=== PATIENT | male | born 1995 | race Two or more races ===

== ENCOUNTER 2024-07-02 13:21 | Outpatient (RCR) | payer MEDICAID, SELFPAY ==
[2024-06-23 16:46] LABS: Basophils % (Auto) 0 % (0-2.5); Eosinophils # (Auto) 0.1 Thou/mm3 (0.0-0.5); Eosinophils % (Auto) 1 % (0-10); Hematocrit 43.2 % (41.0-53.0); Immature Granulocytes % (Auto) 0 % (0-0); Immature Granulocytes Auto 0.03 Thou/mm3 (0.00-0.00); Lymphocytes # (Auto) 1.5 Thou/mm3 (1.0-4.8); Lymphocytes % (Auto) 19 % (10-50); Mean Corpuscular HGB Conc 34.7 g/dl (31.0-37.0); Mean Corpuscular Hemoglobin 28.8 pg (25.0-35.0); Mean Corpuscular Volume 83 fL (80-100); Monocytes # (Auto) 0.5 Thou/mm3 (0.0-0.8); Monocytes % (Auto) 6 % (0-12); Neutrophils # (Auto) 6.1 Thou/mm3 (1.8-7.7); Neutrophils % (Auto) 74 % (37-80); Nucleated Red Blood Cell % 0 /100 WBC (0); Platelet Count 318 Thou/mm3 (140-440); RDW Standard Deviation 40.6 fL (35.1-43.9); White Blood Count 8.2 Thou/mm3 (3.8-10.6)
[2024-06-23 16:51] LABS: Alanine Aminotransferase 95 U/L (10-49); Albumin, Serum 4.8 gm/dL (3.5-5.0); Albumin/Globulin Ratio 1.8 (1.2-2.2); Alkaline Phosphatase 117 U/L (46-116); Anion Gap 8 (7-16); Aspartate Amino Transferase 31 U/L (0-34); BUN/Creatinine Ratio 16 Ratio (12-20); Bilirubin,Total 0.5 mg/dL (0.3-1.2); Blood Urea Nitrogen 14 mg/dL (9-23); Calcium 9.6 mg/dL (8.3-10.6); Calcium (Corrected) 9.6 mg/dL (8.5-10.1); Carbon Dioxide 26.1 mMol/L (20.0-31.0); Chloride 106 mMol/L (98-107); Creatinine (Component) 0.9 mg/dL (0.6-1.3); Globulin 2.6 gm/dL (2.3-3.5); Glucose 110 mg/dL (74-106); Osmolality,Calculated 280 (275-295); Potassium 3.5 mMol/L (3.4-5.1); Sodium 140 mMol/L (136-145); Total Protein 7.4 gm/dL (5.7-8.2); eGFR > 60 See Note
[2024-06-27 22:05] LABS: Albumin 4.1 g/dL (3.8-4.8); Alpha-1-Globulin 0.2 g/dL (0.2-0.3); Alpha-2-Globulin 0.7 g/dL (0.5-0.9); Beta-1-Globulin 0.4 g/dL (0.4-0.6); Beta-2-globulin 0.4 g/dL (0.2-0.5); Gamma Globulin 1.2 g/dL (0.8-1.7)
[2024-06-30 06:53] LABS: Protein, total, serum 7.1 g/dL (6.1-8.1)
[2024-07-02 14:14] LABS: Alanine Aminotransferase 99 U/L (10-49); Albumin, Serum 4.9 gm/dL (3.5-5.0); Albumin/Globulin Ratio 1.9 (1.2-2.2); Alkaline Phosphatase 129 U/L (46-116); Anion Gap 8 (7-16); Aspartate Amino Transferase 46 U/L (0-34); BUN/Creatinine Ratio 14 Ratio (12-20); Bilirubin,Total 0.4 mg/dL (0.3-1.2); Blood Urea Nitrogen 13 mg/dL (9-23); Calcium 9.7 mg/dL (8.3-10.6); Calcium (Corrected) 9.7 mg/dL (8.5-10.1); Carbon Dioxide 25.3 mMol/L (20.0-31.0); Chloride 106 mMol/L (98-107); Creatinine (Component) 0.9 mg/dL (0.6-1.3); Globulin 2.6 gm/dL (2.3-3.5); Glucose 112 mg/dL (74-106); Osmolality,Calculated 278 (275-295); Potassium 3.8 mMol/L (3.4-5.1); Sodium 139 mMol/L (136-145); Total Protein 7.5 gm/dL (5.7-8.2); eGFR > 60 See Note
[2024-07-02 16:59] LABS: Hepatitis A Antibody IgM Non Reactive (Non React); Hepatitis B Core Antibody IgM Non Reactive (Non React); Hepatitis B Surface Antigen Non Reactive (Non React); Hepatitis C Antibody Non Reactive (Non React)
[2024-07-03 08:49] LABS: Immunoglobulin A 204 mg/dL (47-310); Immunoglobulin G 1234 mg/dL (600-1640); Kappa Light Chain, Free 53.1 mg/L (3.3-19.4); Lambda Light Chain, Free 9.9 mg/L (5.7-26.3)
[2024-07-03 13:59] LABS: Beta 2 Microglobulin 1.22 mg/L (< OR = 2.51); Immunoglobulin M 74 mg/dL (50-300); Kappa/Lambda, Free Ratio 5.36 (0.26-1.65)
--- NOTE | 2024-07-14 01:28 | CTCFLWUP_ITS ---
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 06/26/2023: Mr. Bentley was lifting some heavy object when he experienced sudden pain in the back with pain radiating into his both lower extremities. According to Mr. Bentley he was having some dull wojciech n for 6 months prior to that in his lower back. X-rays of the lumbar spine were done 07/31/2023: Due to persistent pain Mr. Bentley had MRI of the lumbar spine without contrast Mr. Bentley saw Dr. Dr. Danielito Moreno of [facility] orthopedics [facility] who requested biopsy of the mass lesion at the L2 vertebra. However according to Mr. Bentley the insurance company wanted a repea t MRI with and without contrast. 10/11/2023:: Mr. Bentley had MRI of the lumbar spine with and without contrast 11/08/2023: Mr. Bentley had CT-guided biopsy of the L2 lesion. 11/28/2023: Bone scan done 12/06/2023: Hemoglobin 15.2, MCV 92, WBC 6.2, ANC 4.0, platelets 235,000, creatinine 0.89, calcium 9.7 , total protein 7.2, globulins 2.6, serum protein electrophoresis negative for M spike, quantitative immunoglobulin levels in the normal range, free kappa light chains elevated at 427.7. [place]/lambda r atio is 49.73. Beta-2 microglobulin 1.2 12/19/2023: Bone marrow biopsy and aspiration done 12/19/2023 - 12/25/2023: Patient received 2000 cGy radiation therapy to the L2 vertebral body region. 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 None Medications Last Reconciled by Amy Noonan MA on 06/30/2024 ALLERGIES: No Known Drug Allergies REVIEW OF SYSTEMS: A complete 14-point review of systems was performed and is negative except as noted in interval histo ry. PHYSICAL EXAMINATION: VITAL SIGNS: Temperature?98.2, B/P?122/77, Oxygen?Saturation?99% PAIN: 0 - No pain GENERAL APPEARANCE: Appears well, in no apparent distress, appropriately interactive. HEENT: Normocephalic, no temporal wasting, normal conjunctiva, no scleral icterus, normal hearing, li ps without lesions, neck normal range of motion. CARDIOVASCULAR: Not assessed. PULMONARY: Normal respiratory effort, no respiratory distress or use of accessory muscles, speaking i n full sentences, no tachypnea. EXTREMITIES: No pedal edema or cyanosis. SKIN: Normal skin appearance. NEUROLOGIC: Alert and oriented x4. PSHYCHIATRIC: Appropriate affect, mood normal, behavior normal, intact thought and speech. LABORATORY DATA: I have personally reviewed and interpreted each of the patient?s relevant lab tests, abnormal finding s are below: Date 07/02/24 ??GLUCOSE,RANDOM?(mg/dL) 112?H ??BLOOD?UREA?NITROGEN?(mg/dL) 13 ??CREATININE?(mg/dL) 0.90 ??SODIUM?(mmol/L) 139 ??POTASSIUM?(mmol/L) 3.8 ??CHLORIDE?(mmol/L) 106 ??CrCl?(CandG)?(ml/min) 126.22 ??AST/SGOT?(Unit/L) 46?H ??ALT/SGPT?(Unit/L) 99?H ??ALKALINE?PHOSPHATASE?(Unit/L) 129?H ??BILIRUBIN,?TOTAL?(mg/dL) 0.4 ??PROTEIN?TOTAL?(gm/dl) 7.5 ??ALBUMIN,?SERUM?(gm/dl) 4.9 ??GLOBULIN?(gm/dl) 2.6 ??ALBUMIN/GLOBULIN?RATIO 1.9 ??CALCIUM,?SERUM?(mg/dL) 9.7 ??CALCIUM?SERUM?(CORRECTED)?(mg/dL) 9.7 ASSESSMENT/PLAN: 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 Patient is s/p radiation Patient is seeing neurosurgery for possible kyphoplasty PET CT scan showed only hypermetabolic osteolytic lesion in L2 and no other osteolytic lesions or hyp ermetabolism Patient's kappa lambda chains are also mildly elevated still Will continue to monitor serum amino pheresis and kappa lambda chain ratio every 2 months Discussed risk of full-blown myeloma more than 50% Bone marrow biopsy negative as of December 19, 2023 Advised to take calcium and vitamin D daily Labs in 2 months Next bone marrow and PET scan in 6 months ORDERS: Bone marrow biopsy Cbc,cmp RETURN TO CLINIC: 6 months BILLING AND COMPLIANCE: I reviewed external records from providers outside my specialty as summarized above. I spent a total of 50 minutes on this patient?s care on the day of their visit excluding time spent related to any bi lled procedures. This time includes time spent with the patient as well as time spent documenting in the medical record, reviewing patients records and tests, obtaining history, placing orders, communi cating with other healthcare professionals, counseling the patient, family or caregiver, and/or care coordination for the diagnoses above. Electronically Signed by: Alden Andrea MD T: 1:26 AM CC: PCP: Ashley Clancy Referring: Ashley Clancy This document was completed utilizing speech recognition software. Grammatical errors, random word in sertions, pronoun errors, and incomplete sentences are an occasional consequence of this system due t o software limitations, ambient noise, and hardware issues. Any formal questions or concerns about th e content, text or information contained within the body of this dictation should be directly address ed to the provider for clarification.
== END 2024-07-15 23:59 | disposition home or self-care (01) ==
LOC: SCTC 13:21
PROVIDERS: PCP Physician Assistant; Referring Provider Physician Assistant; Visit Provider Internal Medicine Hematology & Oncology
DX: C90.30 Solitary plasmacytoma not having achieved remission (principal); Z92.3 Personal history of irradiation
CPT/HCPCS: 36591; 80053; 80074; 82232; 82784; 83521; 84155; 84165; 85025; 86334; 99212; A4216; J1642; J3489; G0463

== ENCOUNTER 2024-08-14 15:00 | Outpatient (RCR) | payer MEDICAID, SELFPAY ==
[2024-08-14 15:55] LABS: Basophils % (Auto) 0 % (0-2.5); Eosinophils # (Auto) 0.1 Thou/mm3 (0.0-0.5); Eosinophils % (Auto) 1 % (0-10); Hematocrit 43.7 % (41.0-53.0); Hemoglobin 15.2 g/dL (13.5-16.0); Immature Granulocytes % (Auto) 1 % (0-0); Immature Granulocytes Auto 0.04 Thou/mm3 (0.00-0.00); Lymphocytes # (Auto) 1.7 Thou/mm3 (1.0-4.8); Lymphocytes % (Auto) 20 % (10-50); Mean Corpuscular HGB Conc 34.8 g/dl (31.0-37.0); Mean Corpuscular Hemoglobin 29.2 pg (25.0-35.0); Mean Corpuscular Volume 84 fL (80-100); Monocytes # (Auto) 0.5 Thou/mm3 (0.0-0.8); Monocytes % (Auto) 6 % (0-12); Neutrophils # (Auto) 6.4 Thou/mm3 (1.8-7.7); Neutrophils % (Auto) 73 % (37-80); Nucleated Red Blood Cell % 0 /100 WBC (0); Platelet Count 288 Thou/mm3 (140-440); RDW Standard Deviation 40.3 fL (35.1-43.9); Red Blood Count 5.21 Miln/mm3 (4.50-5.90); White Blood Count 8.8 Thou/mm3 (3.8-10.6)
[2024-08-14 16:17] LABS: Alanine Aminotransferase 165 U/L (10-49); Albumin, Serum 4.7 gm/dL (3.5-5.0); Albumin/Globulin Ratio 1.7 (1.2-2.2); Alkaline Phosphatase 139 U/L (46-116); Anion Gap 9 (7-16); Aspartate Amino Transferase 72 U/L (0-34); BUN/Creatinine Ratio 11 Ratio (12-20); Bilirubin,Total 0.5 mg/dL (0.3-1.2); Blood Urea Nitrogen 9 mg/dL (9-23); Calcium 9.4 mg/dL (8.3-10.6); Calcium (Corrected) 9.4 mg/dL (8.5-10.1); Carbon Dioxide 25.4 mMol/L (20.0-31.0); Chloride 107 mMol/L (98-107); Creatinine (Component) 0.8 mg/dL (0.6-1.3); Globulin 2.7 gm/dL (2.3-3.5); Glucose 100 mg/dL (74-106); Osmolality,Calculated 279 (275-295); Potassium 3.8 mMol/L (3.4-5.1); Sodium 141 mMol/L (136-145); Total Protein 7.4 gm/dL (5.7-8.2); eGFR > 60 See Note
[2024-08-20 03:02] LABS: Albumin 4.2 g/dL (3.8-4.8); Alpha-1-Globulin 0.3 g/dL (0.2-0.3); Alpha-2-Globulin 0.7 g/dL (0.5-0.9); Beta-1-Globulin 0.5 g/dL (0.4-0.6); Beta-2-globulin 0.4 g/dL (0.2-0.5); Gamma Globulin 1.2 g/dL (0.8-1.7)
[2024-08-20 07:01] LABS: Protein, total, serum 7.3 g/dL (6.1-8.1)
[2024-08-25 13:51] LABS: Immunoglobulin A 220 mg/dL (47-310); Immunoglobulin G 1318 mg/dL (600-1640); Kappa Light Chain, Free 67.9 mg/L (3.3-19.4); Lambda Light Chain, Free 11.9 mg/L (5.7-26.3)
[2024-08-26 06:48] LABS: Immunoglobulin M 79 mg/dL (50-300); Kappa/Lambda, Free Ratio 5.71 (0.26-1.65)
== END 2024-08-15 23:59 | disposition home or self-care (01) ==
LOC: SCTC 15:00
PROVIDERS: PCP Family Medicine; Referring Provider Internal Medicine Hematology & Oncology; Visit Provider Internal Medicine Hematology & Oncology
DX: C90.30 Solitary plasmacytoma not having achieved remission (principal); Z92.3 Personal history of irradiation
CPT/HCPCS: 36591; 80053; 82232; 82784; 83521; 84155; 84165; 85025; 86334; A4216; J1642

== ENCOUNTER 2024-09-09 15:43 | Outpatient (RCR) | payer MEDICAID, SELFPAY ==
--- NOTE | 2024-08-24 22:57 | CTCFLWUP_ITS ---
Patient: SOPHIA BENTLEY : 1995 Page 5 of 6 FOLLOW UP NOTE DATE OF SERVICE: 08/21/2024 NAME: SOPHIA BENTLEY ACCOUNT: [id number] : 1995 AGE: 29 INTERVAL HISTORY: 29-year-old here to follow-up on the multiple myeloma. Patient is scheduled for kyphoplasty. Patient is here for clearance. 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 06/26/2023: Mr. Bentley was lifting some heavy object when he experienced sudden pain in the back with pain radiating into his both lower extremities. According to Mr. Bentley he was having some dull pain for 6 months prior to that in his lower back. X-rays of the lumbar spine were done 07/31/2023: Due to persistent pain Mr. Bentley had MRI of the lumbar spine without contrast Mr. Bentley saw Dr. Dr. Danielito Moreno of [facility] orthopedics [facility] who requested biopsy of the mass lesion at the L2 vertebra. However according to Mr. Bentley the insurance company wanted a repeat MRI with and without contrast. 10/11/2023:: Mr. Bentley had MRI of the lumbar spine with and without contrast 11/08/2023: Mr. Bentley had CT-guided biopsy of the L2 lesion. 11/28/2023: Bone scan done 12/06/2023: Hemoglobin 15.2, MCV 92, WBC 6.2, ANC 4.0, platelets 235,000, creatinine 0.89, calcium 9.7, total protein 7.2, globulins 2.6, serum protein electrophoresis negative for M spike, quantitative immunoglobulin levels in the normal range, free kappa light chains elevated at 427.7. [place]/lambda ratio is 49.73. Beta-2 microglobulin 1.2 12/19/2023: Bone marrow biopsy and aspiration done 12/19/2023 - 12/25/2023: Patient received 2000 cGy radiation therapy to the L2 vertebral body region. 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 None Medications Last Reconciled by Melba Puri MA on 08/21/2024 ALLERGIES: No Known Drug Allergies REVIEW OF SYSTEMS: A complete 14-point review of systems was performed and is negative except as noted in interval history. PHYSICAL EXAMINATION: VITAL SIGNS: Temperature?98.9, B/P?140/84, Oxygen?Saturation?99% PAIN: 3 - Between mild and moderate pain ECOG Performance Status: 3 - Symptomatic; limited self-care; spends >50% of time in bed, not bedridden GENERAL APPEARANCE: Appears well, in no apparent distress, appropriately interactive. HEENT: Normocephalic, no temporal wasting, normal conjunctiva, no scleral icterus, normal hearing, lips without lesions, neck normal range of motion. CARDIOVASCULAR: Not assessed. PULMONARY: Normal respiratory effort, no respiratory distress or use of accessory muscles, speaking in full sentences, no tachypnea. EXTREMITIES: No pedal edema or cyanosis. SKIN: Normal skin appearance. NEUROLOGIC: Alert and oriented x4. PSHYCHIATRIC: Appropriate affect, mood normal, behavior normal, intact thought and speech. LABORATORY DATA: I have personally reviewed and interpreted each of the patient?s relevant lab tests, abnormal findings are below: Date 08/14/24 ??GLUCOSE,RANDOM?(mg/dL) 100 ??BLOOD?UREA?NITROGEN?(mg/dL) 9 ??CREATININE?(mg/dL) 0.80 ??SODIUM?(mmol/L) 141 ??POTASSIUM?(mmol/L) 3.8 ??CHLORIDE?(mmol/L) 107 ??CrCl?(CandG)?(ml/min) 143.94 ??AST/SGOT?(Unit/L) 72?H ??ALT/SGPT?(Unit/L) 165?H ??ALKALINE?PHOSPHATASE?(Unit/L) 139?H ??BILIRUBIN,?TOTAL?(mg/dL) 0.5 ??PROTEIN?TOTAL?(gm/dl) 7.4 ??ALBUMIN,?SERUM?(gm/dl) 4.7 ??GLOBULIN?(gm/dl) 2.7 ??ALBUMIN/GLOBULIN?RATIO 1.7 ??CALCIUM,?SERUM?(mg/dL) 9.4 ??CALCIUM?SERUM?(CORRECTED)?(mg/dL) 9.4 ASSESSMENT/PLAN: 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 Patient is s/p radiation Patient is seeing neurosurgery for possible kyphoplasty PET CT scan showed only hypermetabolic osteolytic lesion in L2 and no other osteolytic lesions or hypermetabolism Patient's kappa lambda chains are also mildly elevated still Will continue to monitor serum amino pheresis and kappa lambda chain ratio every 2 months I reviewed patient's labs and have transaminitis Patient is having continuous increase in his liver enzymes Advised to stop taking all supplements Will repeat labs Advised to hold on kyphoplasty until liver enzymes showed downward trend CBC CMP RETURN TO CLINIC: 1 week BILLING AND COMPLIANCE: I reviewed external records from providers outside my specialty as summarized above. I spent a total of 50 minutes on this patient?s care on the day of their visit excluding time spent related to any billed procedures. This time includes time spent with the patient as well as time spent documenting in the medical record, reviewing patients records and tests, obtaining history, placing orders, communicating with other healthcare professionals, counseling the patient, family or caregiver, and/or care coordination for the diagnoses above. Electronically Signed by: Alden Andrea MD T: 10:54 PM CC: PCP: Bird Bentley Referring: Bird Bentley This document was completed utilizing speech recognition software. Grammatical errors, random word insertions, pronoun errors, and incomplete sentences are an occasional consequence of this system due to software limitations, ambient noise, and hardware issues. Any formal questions or concerns about the content, text or information contained within the body of this dictation should be directly addressed to the provider for clarification.
[2024-09-04 16:03] LABS: Basophils % (Auto) 0 % (0-2.5); Eosinophils % (Auto) 0 % (0-10); Hematocrit 43.4 % (41.0-53.0); Hemoglobin 15.4 g/dL (13.5-16.0); Immature Granulocytes % (Auto) 0 % (0-0); Immature Granulocytes Auto 0.01 Thou/mm3 (0.00-0.00); Lymphocytes % (Auto) 22 % (10-50); Mean Corpuscular HGB Conc 35.5 g/dl (31.0-37.0); Mean Corpuscular Volume 82 fL (80-100); Monocytes # (Auto) 0.6 Thou/mm3 (0.0-0.8); Monocytes % (Auto) 13 % (0-12); Neutrophils # (Auto) 2.9 Thou/mm3 (1.8-7.7); Neutrophils % (Auto) 63 % (37-80); Nucleated Red Blood Cell % 0 /100 WBC (0); Platelet Count 212 Thou/mm3 (140-440); RDW Standard Deviation 37.9 fL (35.1-43.9); Red Blood Count 5.31 Miln/mm3 (4.50-5.90); White Blood Count 4.6 Thou/mm3 (3.8-10.6)
[2024-09-04 16:22] LABS: Alanine Aminotransferase 31 U/L (10-49); Albumin, Serum 4.5 gm/dL (3.5-5.0); Albumin/Globulin Ratio 1.5 (1.2-2.2); Alkaline Phosphatase 97 U/L (46-116); Anion Gap 10 (7-16); Aspartate Amino Transferase 17 U/L (0-34); BUN/Creatinine Ratio 10 Ratio (12-20); Bilirubin,Total 0.4 mg/dL (0.3-1.2); Blood Urea Nitrogen 9 mg/dL (9-23); Calcium 9.4 mg/dL (8.3-10.6); Calcium (Corrected) 9.4 mg/dL (8.5-10.1); Carbon Dioxide 25.5 mMol/L (20.0-31.0); Chloride 103 mMol/L (98-107); Creatinine (Component) 0.9 mg/dL (0.6-1.3); Glucose 97 mg/dL (74-106); Osmolality,Calculated 274 (275-295); Potassium 3.6 mMol/L (3.4-5.1); Sodium 138 mMol/L (136-145); Total Protein 7.5 gm/dL (5.7-8.2); eGFR > 60 See Note
[2024-09-08 07:04] LABS: Gamma Glutamyl Transpeptidase* 58 U/L (3-70)
[2024-09-09 23:34] LABS: Albumin 4.1 g/dL (3.8-4.8); Alpha-1-Globulin 0.3 g/dL (0.2-0.3); Alpha-2-Globulin 0.9 g/dL (0.5-0.9); Beta-1-Globulin 0.4 g/dL (0.4-0.6); Beta-2-globulin 0.4 g/dL (0.2-0.5); Gamma Globulin 1.2 g/dL (0.8-1.7)
[2024-09-10 06:59] LABS: Protein, total, serum 7.4 g/dL (6.1-8.1)
[2024-09-12 07:05] LABS: Immunoglobulin A 224 mg/dL (47-310); Immunoglobulin G 1339 mg/dL (600-1640); Kappa Light Chain, Free 78.2 mg/L (3.3-19.4); Lambda Light Chain, Free 14.2 mg/L (5.7-26.3)
[2024-09-15 06:55] LABS: Beta 2 Microglobulin 2.53 mg/L (< OR = 2.51); Immunoglobulin M 85 mg/dL (50-300); Kappa/Lambda, Free Ratio 5.51 (0.26-1.65)
--- NOTE | 2024-09-21 15:52 | CTCFLWUP_ITS ---
Patient: SOPHIA BENTLEY : 1995 Page 5 of 6 FOLLOW UP NOTE DATE OF SERVICE: 09/09/2024 NAME: SOPHIA BENTLEY ACCOUNT: [id number] : 1995 AGE: 29 INTERVAL HISTORY: 29-year-old here to follow-up on the multiple myeloma. Patient is scheduled for kyphoplasty. Patient at the last visit was advised to stop taking supplement and here to follow-up on the lab results since stopping supplements Otherwise no new complaints ONCOLOGY HISTORY:?[facility] Hx? 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 06/26/2023: Mr. Bentley was lifting some heavy object when he experienced sudden pain in the back with pain radiating into his both lower extremities. According to Mr. Bentley he was having some dull pain for 6 months prior to that in his lower back. X-rays of the lumbar spine were done 07/31/2023: Due to persistent pain Mr. Bentley had MRI of the lumbar spine without contrast Mr. Bentley saw Dr. Dr. Danielito Moreno of [facility] orthopedics [facility] who requested biopsy of the mass lesion at the L2 vertebra. However according to Mr. Bentley the insurance company wanted a repeat MRI with and without contrast. 10/11/2023:: Mr. Bentley had MRI of the lumbar spine with and without contrast 11/08/2023: Mr. Bentley had CT-guided biopsy of the L2 lesion. 11/28/2023: Bone scan done 12/06/2023: Hemoglobin 15.2, MCV 92, WBC 6.2, ANC 4.0, platelets 235,000, creatinine 0.89, calcium 9.7, total protein 7.2, globulins 2.6, serum protein electrophoresis negative for M spike, quantitative immunoglobulin levels in the normal range, free kappa light chains elevated at 427.7. [place]/lambda ratio is 49.73. Beta-2 microglobulin 1.2 12/19/2023: Bone marrow biopsy and aspiration done 12/19/2023 - 12/25/2023: Patient received 2000 cGy radiation therapy to the L2 vertebral body region. 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 None?[place] Meds? Medications Last Reconciled by Amy Noonan MA on 09/09/2024 ALLERGIES: No Known Drug Allergies REVIEW OF SYSTEMS: A complete 14-point review of systems was performed and is negative except as noted in interval history. PHYSICAL EXAMINATION:?CloneBlock PE? VITAL SIGNS: Temperature?98.7, B/P?119/80, Oxygen?Saturation?98% PAIN: 2 - Mild pain ECOG Performance Status: 0 - Asymptomatic and fully active GENERAL APPEARANCE: Appears well, in no apparent distress, appropriately interactive. HEENT: Normocephalic, no temporal wasting, normal conjunctiva, no scleral icterus, normal hearing, lips without lesions, neck normal range of motion. CARDIOVASCULAR: Not assessed. PULMONARY: Normal respiratory effort, no respiratory distress or use of accessory muscles, speaking in full sentences, no tachypnea. EXTREMITIES: No pedal edema or cyanosis. SKIN: Normal skin appearance. NEUROLOGIC: Alert and oriented x4. PSHYCHIATRIC: Appropriate affect, mood normal, behavior normal, intact thought and speech. LABORATORY DATA: I have personally reviewed and interpreted each of the patient?s relevant lab tests, abnormal findings are below: Date 08/14/24 09/04/24 ??WHITE?BLOOD?COUNT?(Thou/mm3) 8.8 4.6 ??RED?BLOOD?COUNT?(Miln/mm3) 5.21 5.31 ??HEMOGLOBIN?(gm/dl) 15.2 15.4 ??HEMATOCRIT?(%) 43.7 43.4 ??PLATELET?COUNT?(Thou/mm3) 288 212 ??NEUTROPHILS?%,?AUTO?(%) 73 63 ??LYMPH?%,?AUTO?(%) 20 22 ??NEUTROPHILS,?AUTO?(Thou/mm3) 6.4 2.9 ??GLUCOSE,RANDOM?(mg/dL) 100 97 ??BLOOD?UREA?NITROGEN?(mg/dL) 9 9 ??CREATININE?(mg/dL) 0.80 0.90 ??SODIUM?(mmol/L) 141 138 ??POTASSIUM?(mmol/L) 3.8 3.6 ??CHLORIDE?(mmol/L) 107 103 ??CrCl?(CandG)?(ml/min) 143.94 127.01 ??AST/SGOT?(Unit/L) 72?H 17 ??ALT/SGPT?(Unit/L) 165?H 31 ??ALKALINE?PHOSPHATASE?(Unit/L) 139?H 97 ??BILIRUBIN,?TOTAL?(mg/dL) 0.5 0.4 ??PROTEIN?TOTAL?(gm/dl) 7.4 7.5 ??ALBUMIN,?SERUM?(gm/dl) 4.7 4.5 ??GLOBULIN?(gm/dl) 2.7 3.0 ??ALBUMIN/GLOBULIN?RATIO 1.7 1.5 ??CALCIUM,?SERUM?(mg/dL) 9.4 9.4 ??CALCIUM?SERUM?(CORRECTED)?(mg/dL) 9.4 9.4 ASSESSMENT/PLAN:?Cesar Andrea Assessment/Plan? 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 BILLING AND COMPLIANCE: I reviewed external records from providers outside my specialty as summarized above. I spent a total of 50 minutes on this patient?s care on the day of their visit excluding time spent related to any billed procedures. This time includes time spent with the patient as well as time spent documenting in the medical record, reviewing patients records and tests, obtaining history, placing orders, communicating with other healthcare professionals, counseling the patient, family or caregiver, and/or care coordination for the diagnoses above. Electronically Signed by: Alden Andrea MD T: 3:50 PM CC: PCP: Bird Bentley Referring: Bird Bentley This document was completed utilizing speech recognition software. Grammatical errors, random word insertions, pronoun errors, and incomplete sentences are an occasional consequence of this system due to software limitations, ambient noise, and hardware issues. Any formal questions or concerns about the content, text or information contained within the body of this dictation should be directly addressed to the provider for clarification.
== END 2024-09-12 23:59 | disposition home or self-care (01) ==
LOC: SCTC 15:43
PROVIDERS: PCP Family Medicine; Referring Provider Family Medicine; Visit Provider Internal Medicine Hematology & Oncology
DX: C90.30 Solitary plasmacytoma not having achieved remission (principal); Z92.3 Personal history of irradiation
CPT/HCPCS: 36591; 80053; 82232; 82784; 82977; 83521; 84155; 84165; 85025; 86334; 99212; A4216; J1642; G0463

== ENCOUNTER 2024-12-04 15:08 | Outpatient (RCR) | payer MEDICAID, SELFPAY ==
[2024-11-24 16:36] LABS: Basophils % (Auto) 0 % (0-2.5); Eosinophils # (Auto) 0.1 Thou/mm3 (0.0-0.5); Eosinophils % (Auto) 1 % (0-10); Hematocrit 38.7 % (41.0-53.0); Hemoglobin 13.7 g/dL (13.5-16.0); Immature Granulocytes % (Auto) 0 % (0-0); Immature Granulocytes Auto 0.03 Thou/mm3 (0.00-0.00); Lymphocytes % (Auto) 24 % (10-50); Mean Corpuscular HGB Conc 35.4 g/dl (31.0-37.0); Mean Corpuscular Volume 82 fL (80-100); Monocytes # (Auto) 0.5 Thou/mm3 (0.0-0.8); Monocytes % (Auto) 6 % (0-12); Neutrophils % (Auto) 70 % (37-80); Nucleated Red Blood Cell % 0 /100 WBC (0); Platelet Count 250 Thou/mm3 (140-440); RDW Standard Deviation 40.1 fL (35.1-43.9); Red Blood Count 4.73 Miln/mm3 (4.50-5.90); White Blood Count 8.7 Thou/mm3 (3.8-10.6)
[2024-11-24 16:49] LABS: Alanine Aminotransferase 35 U/L (10-49); Albumin, Serum 4.3 gm/dL (3.5-5.0); Albumin/Globulin Ratio 1.5 (1.2-2.2); Alkaline Phosphatase 125 U/L (46-116); Anion Gap 11 (7-16); Aspartate Amino Transferase 19 U/L (0-34); BUN/Creatinine Ratio 10 Ratio (12-20); Bilirubin,Total 0.5 mg/dL (0.3-1.2); Blood Urea Nitrogen 9 mg/dL (9-23); Calcium 8.8 mg/dL (8.3-10.6); Calcium (Corrected) 8.8 mg/dL (8.5-10.1); Carbon Dioxide 24.5 mMol/L (20.0-31.0); Chloride 106 mMol/L (98-107); Creatinine (Component) 0.9 mg/dL (0.6-1.3); Globulin 2.8 gm/dL (2.3-3.5); Glucose 98 mg/dL (74-106); Osmolality,Calculated 279 (275-295); Potassium 3.4 mMol/L (3.4-5.1); Sodium 141 mMol/L (136-145); Total Protein 7.1 gm/dL (5.7-8.2); eGFR > 60 See Note
[2024-11-29 03:04] LABS: Albumin, Random Urine 100 %; Alpha 1 Globulin, Random Urine 0 %; Alpha 2 Globulin, Random Urine 0 %; Beta Globulin, Random Urine 0 %; Gamma Globulin, Random Urine 0 %; Protein,Total,Random Urine 6 mg/dL (5-25); Protein/Creatinine Ratio 68 mg/g creat (25-148)
[2024-11-29 11:21] LABS: Albumin 4.1 g/dL (3.8-4.8); Alpha-1-Globulin 0.3 g/dL (0.2-0.3); Alpha-2-Globulin 0.7 g/dL (0.5-0.9); Beta-1-Globulin 0.5 g/dL (0.4-0.6); Beta-2-globulin 0.3 g/dL (0.2-0.5); Gamma Globulin 1.1 g/dL (0.8-1.7)
[2024-11-29 13:49] LABS: Immunoglobulin A 190 mg/dL (47-310); Immunoglobulin G 1243 mg/dL (600-1640); Kappa Light Chain, Free 114.5 mg/L (3.3-19.4); Lambda Light Chain, Free 7.4 mg/L (5.7-26.3)
[2024-12-01 07:32] LABS: Beta 2 Microglobulin 1.36 mg/L (< OR = 2.51); Creatinine, Random Urine 89 mg/dL (20-320); Immunoglobulin M 90 mg/dL (50-300); Kappa/Lambda, Free Ratio 15.47 (0.26-1.65); Protein/Creatinine Ratio mg/mg 0.068 (0.025-0.148)
--- NOTE | 2024-12-10 01:40 | CTCFLWUP_ITS ---
Patient: SOPHIA BENTLEY : 1995 Page 2 of 2 FOLLOW UP NOTE DATE OF SERVICE: 12/04/2024 NAME: SOPHIA BENTLEY ACCOUNT: [id number] : 1995 AGE: 29 INTERVAL HISTORY: 29-year-old here to follow-up on the multiple myeloma. Patient completed kyphoplasty and is undergoing rehabilitation. Patient is now able to walk mostly on his own but still advised to use walker follows with neurology surgery . Patient is very satisfied with his clinical outcome. 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 06/26/2023: Mr. Bentley was lifting some heavy object when he experienced sudden pain in the back with pain radiating into his both lower extremities. According to Mr. Bentley he was having some dull pain for 6 months prior to that in his lower back. X-rays of the lumbar spine were done 07/31/2023: Due to persistent pain Mr. Bentley had MRI of the lumbar spine without contrast Mr. Bentley saw Dr. Dr. Danielito Moreno of [facility] [place] [facility] who requested biopsy of the mass lesion at the L2 vertebra. However according to Mr. Bentley the insurance company wanted a repeat MRI with and without contrast. 10/11/2023:: Mr. Bentley had MRI of the lumbar spine with and without contrast 11/08/2023: Mr. Bentley had CT-guided biopsy of the L2 lesion. 11/28/2023: Bone scan done 12/06/2023: Hemoglobin 15.2, MCV 92, WBC 6.2, ANC 4.0, platelets 235,000, creatinine 0.89, calcium 9.7, total protein 7.2, globulins 2.6, serum protein electrophoresis negative for M spike, quantitative immunoglobulin levels in the normal range, free kappa light chains elevated at 427.7. [place]/lambda ratio is 49.73. Beta-2 microglobulin 1.2 12/19/2023: Bone marrow biopsy and aspiration done 12/19/2023 - 12/25/2023: Patient received 2000 cGy radiation therapy to the L2 vertebral body region. 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 None Medications Last Reconciled by Amy Noonan MA on 12/04/2024 ALLERGIES: No Known Drug Allergies REVIEW OF SYSTEMS: A complete 14-point review of systems was performed and is negative except as noted in interval history. PHYSICAL EXAMINATION: VITAL SIGNS: Temperature?98, B/P?131/83, Oxygen?Saturation?99% PAIN: 0 - No pain GENERAL APPEARANCE: Appears well, in no apparent distress, appropriately interactive. HEENT: Normocephalic, no temporal wasting, normal conjunctiva, no scleral icterus, normal hearing, lips without lesions, neck normal range of motion. CARDIOVASCULAR: Not assessed. PULMONARY: Normal respiratory effort, no respiratory distress or use of accessory muscles, speaking in full sentences, no tachypnea. EXTREMITIES: No pedal edema or cyanosis. SKIN: Normal skin appearance. NEUROLOGIC: Alert and oriented x4. PSHYCHIATRIC: Appropriate affect, mood normal, behavior normal, intact thought and speech. LABORATORY DATA: I have personally reviewed and interpreted each of the patient?s relevant lab tests, abnormal findings are below: Date 09/04/24 11/24/24 ??WHITE?BLOOD?COUNT?(Thou/mm3) 4.6 8.7 ??RED?BLOOD?COUNT?(Miln/mm3) 5.31 4.73 ??HEMOGLOBIN?(gm/dl) 15.4 13.7 ??HEMATOCRIT?(%) 43.4 38.7?L ??PLATELET?COUNT?(Thou/mm3) 212 250 ??NEUTROPHILS?%,?AUTO?(%) 63 70 ??LYMPH?%,?AUTO?(%) 22 24 ??NEUTROPHILS,?AUTO?(Thou/mm3) 2.9 6.0 ??GLUCOSE,RANDOM?(mg/dL) 97 98 ??BLOOD?UREA?NITROGEN?(mg/dL) 9 9 ??CREATININE?(mg/dL) 0.90 0.90 ??SODIUM?(mmol/L) 138 141 ??POTASSIUM?(mmol/L) 3.6 3.4 ??CHLORIDE?(mmol/L) 103 106 ??CrCl?(CandG)?(ml/min) 127.01 128.57 ??AST/SGOT?(Unit/L) 17 19 ??ALT/SGPT?(Unit/L) 31 35 ??ALKALINE?PHOSPHATASE?(Unit/L) 97 125?H ??BILIRUBIN,?TOTAL?(mg/dL) 0.4 0.5 ??PROTEIN?TOTAL?(gm/dl) 7.5 7.1 ??ALBUMIN,?SERUM?(gm/dl) 4.5 4.3 ??GLOBULIN?(gm/dl) 3.0 2.8 ??ALBUMIN/GLOBULIN?RATIO 1.5 1.5 ??CALCIUM,?SERUM?(mg/dL) 9.4 8.8 ??CALCIUM?SERUM?(CORRECTED)?(mg/dL) 9.4 8.8 ASSESSMENT/PLAN: 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 Patient is s/p radiation Patient completed kyphoplasty PET CT scan showed only hypermetabolic osteolytic lesion in L2 and no other osteolytic lesions or hypermetabolism Patient's kappa lambda chains are also mildly elevated still Will continue to monitor serum amino pheresis and kappa lambda chain ratio every 2 months Continue to monitor with labs every 2 months ORDERS: Order # Description [id number] Comprehensive Metabolic Panel - 12 + CBC with Auto Diff [id number] Serum Protein Electrophoresis + Serum Immunofixation Electrophoresis + Beta-2 Microglobulin + Quant Immunoglobulins + Free kappa and lambda light chains plus ratio, quantitative + 24 Hour Urine for total Protein + Urine Protien Electrophoresis + Urine Immunification Electrophoresis RETURN TO CLINIC: BILLING AND COMPLIANCE: I reviewed external records from providers outside my specialty as summarized above. I spent a total of 50 minutes on this patient?s care on the day of their visit excluding time spent related to any billed procedures. This time includes time spent with the patient as well as time spent documenting in the medical record, reviewing patients records and tests, obtaining history, placing orders, communicating with other healthcare professionals, counseling the patient, family or caregiver, and/or care coordination for the diagnoses above. Electronically Signed by: Alden Andrea MD T: 1:37 AM CC: PCP: Bird Bentley Referring: Bird Bentley This document was completed utilizing speech recognition software. Grammatical errors, random word insertions, pronoun errors, and incomplete sentences are an occasional consequence of this system due to software limitations, ambient noise, and hardware issues. Any formal questions or concerns about the content, text or information contained within the body of this dictation should be directly addressed to the provider for clarification.
== END 2024-12-13 23:59 | disposition home or self-care (01) ==
LOC: SCTC 15:08
PROVIDERS: PCP Family Medicine; Referring Provider Family Medicine; Visit Provider Internal Medicine Hematology & Oncology
DX: C90.30 Solitary plasmacytoma not having achieved remission (principal); Z92.3 Personal history of irradiation
CPT/HCPCS: 36591; 80053; 82232; 82570; 82784; 83521; 84155; 84156; 84165; 84166; 85025; 86334; 99212; A4216; J1642; G0463

== ENCOUNTER 2025-01-20 10:08 | Outpatient (RCR) | payer MEDICAID, SELFPAY | END 2025-02-12 23:59 | disposition home or self-care (01) | LOC: SCTC 10:08 | PROVIDERS: Referring Provider Internal Medicine Hematology & Oncology; Visit Provider Internal Medicine Hematology & Oncology | DX: Z45.2 Encounter for adjustment and management of vascular access device (principal); C90.30 Solitary plasmacytoma not having achieved remission; Z92.3 Personal history of irradiation | CPT/HCPCS: 96523; A4216; J1642 ==

== ENCOUNTER → 2025-02-19 | Outpatient (CLI) | payer MEDICAID, SELFPAY ==
--- NOTE | 2025-02-19 14:00 | XR_ITS ---
Examination: MRI abdomen with intravenous contrast. MRI abdomen without intravenous contrast. Date and time of exam: February 19, 2025 1422 hours Comparison PET/CT scan January 03, 2024 INDICATIONS: Diagnosis bone marrow cancer diagnosis 2 years ago, elevated liver enzymes on laboratory examination September 2024 Technique: Multiple axial, sagittal and coronal sections of the abdomen obtained. Transverse images, TR 6020, TE 107. T1 weighted transverse images, TR 582, TE 9.5. T2-weighted sagittal images, TR 4000, TE 105. T2-weighted sagittal images, TR 4000, TE 5. Coronal images, TR 4210, TE 107. Axial and coronal images are obtained post 19 cc intravenous injection, gadolinium. Findings: Negative for hepatomegaly Precontrast images demonstrate no focal liver lesion No intrahepatic biliary tract dilatation Postcontrast images demonstrate no abnormal enhancing liver lesion Spleen not enlarged No gallstones No pancreatic mass The adrenal glands appear normal No hydronephrosis No ascites No abdominal lymphadenopathy Extensive magnetic susceptibility artifact generated from the lumbar spine IMPRESSION: No liver lesions No intra or extra hepatic biliary tract dilatation
== END | disposition home or self-care (01) ==
LOC: SMRI 13:37
PROVIDERS: PCP Physician Assistant; Referring Provider Internal Medicine Hematology & Oncology; Visit Provider Internal Medicine Hematology & Oncology
DX: C79.52 Secondary malignant neoplasm of bone marrow (principal)
CPT/HCPCS: 74183; A9577

== ENCOUNTER 2025-03-05 14:59 | Outpatient (RCR) | payer MEDICAID, SELFPAY ==
[2025-02-23 16:45] LABS: Basophils # (Auto) 0.0 Thou/mm3 (0.0-0.2); Basophils % (Auto) 1 % (0-2.5); Eosinophils # (Auto) 0.1 Thou/mm3 (0.0-0.5); Eosinophils % (Auto) 2 % (0-10); Hematocrit 41.3 % (41.0-53.0); Hemoglobin 13.9 g/dL (13.5-16.0); Immature Granulocytes Auto 0.04 Thou/mm3 (0.00-0.00); Lymphocytes # (Auto) 2.1 Thou/mm3 (1.0-4.8); Lymphocytes % (Auto) 27 % (10-50); Mean Corpuscular HGB Conc 33.7 g/dl (31.0-37.0); Mean Corpuscular Hemoglobin 28.1 pg (25.0-35.0); Mean Corpuscular Volume 83 fL (80-100); Monocytes # (Auto) 0.6 Thou/mm3 (0.0-0.8); Monocytes % (Auto) 8 % (0-12); Neutrophils # (Auto) 4.8 Thou/mm3 (1.8-7.7); Neutrophils % (Auto) 62 % (37-80); Nucleated Red Blood Cell # 0.00 Thou/mm3 (0.00-0.00); Nucleated Red Blood Cell % 0 /100 WBC (0); Platelet Count 291 Thou/mm3 (140-440); RDW Standard Deviation 43.1 fL (35.1-43.9); Red Blood Count 4.95 Miln/mm3 (4.50-5.90); White Blood Count 7.7 Thou/mm3 (3.8-10.6)
[2025-02-23 17:05] LABS: Alanine Aminotransferase 43 U/L (10-49); Albumin, Serum 4.3 gm/dL (3.5-5.0); Albumin/Globulin Ratio 1.9 (1.2-2.2); Alkaline Phosphatase 112 U/L (46-116); Anion Gap 9 (7-16); Aspartate Amino Transferase 26 U/L (0-34); BUN/Creatinine Ratio 11 Ratio (12-20); Bilirubin,Total 0.6 mg/dL (0.3-1.2); Blood Urea Nitrogen 11 mg/dL (9-23); Calcium 9.4 mg/dL (8.3-10.6); Calcium (Corrected) 9.4 mg/dL (8.5-10.1); Carbon Dioxide 25.6 mMol/L (20.0-31.0); Chloride 107 mMol/L (98-107); Creatinine (Component) 1.0 mg/dL (0.6-1.3); Globulin 2.3 gm/dL (2.3-3.5); Glucose 97 mg/dL (74-106); Osmolality,Calculated 282 (275-295); Potassium 3.6 mMol/L (3.4-5.1); Sodium 142 mMol/L (136-145); Total Protein 6.6 gm/dL (5.7-8.2); eGFR > 60 See Note
[2025-02-27 22:06] LABS: Albumin 4.0 g/dL (3.8-4.8); Alpha-1-Globulin 0.2 g/dL (0.2-0.3); Alpha-2-Globulin 0.7 g/dL (0.5-0.9); Beta-1-Globulin 0.4 g/dL (0.4-0.6); Beta-2-globulin 0.3 g/dL (0.2-0.5); Gamma Globulin 1.2 g/dL (0.8-1.7)
[2025-03-02 06:39] LABS: Protein, total, serum 6.9 g/dL (6.1-8.1)
[2025-03-04 13:52] LABS: Immunoglobulin A 177 mg/dL (47-310); Immunoglobulin G 1233 mg/dL (600-1640); Kappa Light Chain, Free 196.2 mg/L (3.3-19.4); Lambda Light Chain, Free 8.0 mg/L (5.7-26.3)
[2025-03-05 06:47] LABS: Beta 2 Microglobulin 1.16 mg/L (< OR = 2.51); Immunoglobulin M 74 mg/dL (50-300); Kappa/Lambda, Free Ratio 24.52 (0.26-1.65)
--- NOTE | 2025-03-08 23:41 | CTCFLWUP_ITS ---
Patient: SOPHIA ALFONSO : 1995 Page 5 of 6 FOLLOW UP NOTE DATE OF SERVICE: 03/05/2025 NAME: SOPHIA ALFONSO ACCOUNT: [id number] : 1995 AGE: 29 INTERVAL HISTORY: 29-year-old here to follow-up on the multiple myeloma. Patient completed kyphoplasty .patient is back to his baseline and walking well. He is here to follow on labs . 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 06/26/2023: Mr. Alfonso was lifting some heavy object when he experienced sudden pain in the back with pain radiating into his both lower extremities. According to Mr. Alfonso he was having some dull pain for 6 months prior to that in his lower back. X-rays of the lumbar spine were done 07/31/2023: Due to persistent pain Mr. Alfonso had MRI of the lumbar spine without contrast Mr. Alfonso saw Dr. Dr. Danielito Moreno of [facility] who requested biopsy of the mass lesion at the L2 vertebra. However according to Mr. Alfonso the insurance company wanted a repeat MRI with and without contrast. 10/11/2023:: Mr. Alfonso had MRI of the lumbar spine with and without contrast 11/08/2023: Mr. Alfonso had CT-guided biopsy of the L2 lesion. 11/28/2023: Bone scan done 12/06/2023: Hemoglobin 15.2, MCV 92, WBC 6.2, ANC 4.0, platelets 235,000, creatinine 0.89, calcium 9.7, total protein 7.2, globulins 2.6, serum protein electrophoresis negative for M spike, quantitative immunoglobulin levels in the normal range, free kappa light chains elevated at 427.7. [place]/lambda ratio is 49.73. Beta-2 microglobulin 1.2 12/19/2023: Bone marrow biopsy and aspiration done 12/19/2023 - 12/25/2023: Patient received 2000 cGy radiation therapy to the L2 vertebral body region. 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 None Medications Last Reconciled by Melba Puri MA on 03/05/2025 ALLERGIES: No Known Drug Allergies REVIEW OF SYSTEMS: A complete 14-point review of systems was performed and is negative except as noted in interval history. PHYSICAL EXAMINATION: VITAL SIGNS: Temperature?98, B/P?131/78, Oxygen?Saturation?98% Weight?170?lbs (Change?since?02/23/25:?-2.2?lbs) PAIN: 3 - Between mild and moderate pain ECOG Performance Status: 0 - Asymptomatic and fully active GENERAL APPEARANCE: Appears well, in no apparent distress, appropriately interactive. HEENT: Normocephalic, no temporal wasting, normal conjunctiva, no scleral icterus, normal hearing, lips without lesions, neck normal range of motion. CARDIOVASCULAR: Not assessed. PULMONARY: Normal respiratory effort, no respiratory distress or use of accessory muscles, speaking in full sentences, no tachypnea. EXTREMITIES: No pedal edema or cyanosis. SKIN: Normal skin appearance. NEUROLOGIC: Alert and oriented x4. PSHYCHIATRIC: Appropriate affect, mood normal, behavior normal, intact thought and speech. LABORATORY DATA: I have personally reviewed and interpreted each of the patient?s relevant lab tests, abnormal findings are below: Date 11/24/24 02/23/25 ??WHITE?BLOOD?COUNT?(Thou/mm3) 8.7 7.7 ??RED?BLOOD?COUNT?(Miln/mm3) 4.73 4.95 ??HEMOGLOBIN?(gm/dl) 13.7 13.9 ??HEMATOCRIT?(%) 38.7?L 41.3 ??PLATELET?COUNT?(Thou/mm3) 250 291 ??NEUTROPHILS?%,?AUTO?(%) 70 62 ??LYMPH?%,?AUTO?(%) 24 27 ??NEUTROPHILS,?AUTO?(Thou/mm3) 6.0 4.8 ??GLUCOSE,RANDOM?(mg/dL) 98 97 ??BLOOD?UREA?NITROGEN?(mg/dL) 9 11 ??CREATININE?(mg/dL) 0.90 1.00 ??SODIUM?(mmol/L) 141 142 ??POTASSIUM?(mmol/L) 3.4 3.6 ??CHLORIDE?(mmol/L) 106 107 ??CrCl?(CandG)?(ml/min) 128.57 104.23 ??AST/SGOT?(Unit/L) 19 26 ??ALT/SGPT?(Unit/L) 35 43 ??ALKALINE?PHOSPHATASE?(Unit/L) 125?H 112 ??BILIRUBIN,?TOTAL?(mg/dL) 0.5 0.6 ??PROTEIN?TOTAL?(gm/dl) 7.1 6.6 ??ALBUMIN,?SERUM?(gm/dl) 4.3 4.3 ??GLOBULIN?(gm/dl) 2.8 2.3 ??ALBUMIN/GLOBULIN?RATIO 1.5 1.9 ??CALCIUM,?SERUM?(mg/dL) 8.8 9.4 ??CALCIUM?SERUM?(CORRECTED)?(mg/dL) 8.8 9.4 ASSESSMENT/PLAN: 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 Patient is s/p radiation Patient completed kyphoplasty PET CT scan showed only hypermetabolic osteolytic lesion in L2 and no other osteolytic lesions or hypermetabolism Patient's kappa lambda chains are getting progressively worse Will get bone scan Bone marrow biopsy at [facility] karly Refer to [facility] Repeat labs and RTC in 4 weeks ORDERS: Order # Description [id number] Bone Scan, Whole body [id number] Serum Protein Electrophoresis + Serum Immunofixation Electrophoresis + Quant Immunoglobulins + Free kappa and lambda light chains plus ratio, quantitative + Urine Protien Electrophoresis + Beta-2 Microglobulin [id number] Follow Up 4 Week RETURN TO CLINIC: I reviewed the diagnosis, prognosis, and recommended treatment/procedure options with the patient (and/or their legal players club representative), including the potential benefits, risks, side effects and alternative therapies. We also discussed the option of no treatment and the possibility of clinical trial participation, if applicable. All questions were addressed, and they demonstrated understanding. They provided informed consent to proceed with the proposed plan of care. BILLING AND COMPLIANCE: I reviewed external records from providers outside my specialty as summarized above. I spent a total of 50 minutes on this patient?s care on the day of their visit excluding time spent related to any billed procedures. This time includes time spent with the patient as well as time spent documenting in the medical record, reviewing patients records and tests, obtaining history, placing orders, communicating with other healthcare professionals, counseling the patient, family or caregiver, and/or care coordination for the diagnoses above. Electronically Signed by: {Object.Sanct_ID*PnP.NameFL@M}, {Object.Sanct_ID*PnP.Suffix@U} D: {Object.Sanct_Date} T: {Object.Sanct_Time} CC: PCP: Bird Alfonso Referring: Bird Alfonso This document was completed utilizing speech recognition software. Grammatical errors, random word insertions, pronoun errors, and incomplete sentences are an occasional consequence of this system due to software limitations, ambient noise, and hardware issues. Any formal questions or concerns about the content, text or information contained within the body of this dictation should be directly addressed to the provider for clarification.
== END 2025-03-15 23:59 | disposition home or self-care (01) ==
LOC: SCTC 14:59
PROVIDERS: PCP Family Medicine; Referring Provider Family Medicine; Visit Provider Internal Medicine Hematology & Oncology
DX: C90.30 Solitary plasmacytoma not having achieved remission (principal); Z92.3 Personal history of irradiation
CPT/HCPCS: 36591; 80053; 82232; 82784; 83521; 84155; 84165; 85025; 86334; 99212; A4216; J1642; G0463

== ENCOUNTER → 2025-04-09 | Outpatient (CLI) | payer MEDICAID, SELFPAY ==
--- NOTE | 2025-04-09 15:00 | XR_ITS ---
Examination: Bone scan whole body, radioisotope Date and time of exam: April 09, 2025, 1535 hours INDICATIONS: Diagnosis secondary malignant neoplasm bone marrow, injury at work 2 years ago with back surgery, multiple myeloma diagnosis, history kyphoplasty Technique: Study has been performed with intravenous administration of 24.5 mci 99M technetium MDP. Anterior, posterior whole body images are obtained. Images have been obtained including the lower extremities. Findings: Increased isotope examination lumbar spine T12-L3, please see the PET/CT scan report January 03, 2024 indicating osteolytic lesion replacing the L2 vertebral body Focal increased isotope accumulation Vertex of the skull posteriorly and left parietal bone on the posterior skull images IMPRESSION: Positive bone scan but nonspecific Recommend plain films lumbar spine follow-up as well as 4 view skull series
== END | disposition home or self-care (01) ==
LOC: SNUC 08:48
PROVIDERS: PCP Physician Assistant; Referring Provider Internal Medicine Hematology & Oncology; Visit Provider Internal Medicine Hematology & Oncology
DX: R93.7 Abnormal findings on diagnostic imaging of other parts of musculoskeletal system (principal); C79.52 Secondary malignant neoplasm of bone marrow
CPT/HCPCS: 78306; A9503

== ENCOUNTER 2025-04-28 14:26 | Outpatient (RCR) | payer MEDICAID, SELFPAY ==
[2025-04-21 16:14] LABS: Basophils # (Auto) 0.0 Thou/mm3 (0.0-0.2); Basophils % (Auto) 0 % (0-2.5); Eosinophils # (Auto) 0.1 Thou/mm3 (0.0-0.5); Eosinophils % (Auto) 2 % (0-10); Hematocrit 41.5 % (41.0-53.0); Hemoglobin 14.5 g/dL (13.5-16.0); Immature Granulocytes Auto 0.03 Thou/mm3 (0.00-0.00); Lymphocytes # (Auto) 2.0 Thou/mm3 (1.0-4.8); Lymphocytes % (Auto) 24 % (10-50); Mean Corpuscular HGB Conc 34.9 g/dl (31.0-37.0); Mean Corpuscular Hemoglobin 29.2 pg (25.0-35.0); Mean Corpuscular Volume 84 fL (80-100); Monocytes # (Auto) 0.6 Thou/mm3 (0.0-0.8); Monocytes % (Auto) 8 % (0-12); Neutrophils # (Auto) 5.4 Thou/mm3 (1.8-7.7); Neutrophils % (Auto) 66 % (37-80); Nucleated Red Blood Cell # 0.00 Thou/mm3 (0.00-0.00); Nucleated Red Blood Cell % 0 /100 WBC (0); Platelet Count 292 Thou/mm3 (140-440); RDW Standard Deviation 42.9 fL (35.1-43.9); Red Blood Count 4.96 Miln/mm3 (4.50-5.90); White Blood Count 8.2 Thou/mm3 (3.8-10.6)
[2025-04-21 16:39] LABS: Alanine Aminotransferase 28 U/L (10-49); Albumin, Serum 4.2 gm/dL (3.5-5.0); Albumin/Globulin Ratio 1.6 (1.2-2.2); Alkaline Phosphatase 103 U/L (46-116); Anion Gap 10 (7-16); Aspartate Amino Transferase 31 U/L (0-34); BUN/Creatinine Ratio 8 Ratio (12-20); Bilirubin,Total 0.4 mg/dL (0.3-1.2); Blood Urea Nitrogen 7 mg/dL (9-23); Calcium 9.3 mg/dL (8.3-10.6); Calcium (Corrected) 9.3 mg/dL (8.5-10.1); Carbon Dioxide 25.5 mMol/L (20.0-31.0); Chloride 107 mMol/L (98-107); Creatinine (Component) 0.9 mg/dL (0.6-1.3); Globulin 2.6 gm/dL (2.3-3.5); Glucose 92 mg/dL (74-106); Osmolality,Calculated 281 (275-295); Potassium 3.8 mMol/L (3.4-5.1); Sodium 142 mMol/L (136-145); Total Protein 6.8 gm/dL (5.7-8.2); eGFR > 60 See Note
[2025-04-25 22:05] LABS: Albumin, Random Urine 100 %; Alpha 1 Globulin, Random Urine 0 %; Alpha 2 Globulin, Random Urine 0 %; Beta Globulin, Random Urine 0 %; Gamma Globulin, Random Urine 0 %; Protein,Total,Random Urine 7 mg/dL (5-25); Protein/Creatinine Ratio 144 mg/g creat (25-148)
[2025-04-27 06:30] LABS: Creatinine, Random Urine 49 mg/dL (20-320); Protein/Creatinine Ratio mg/mg 0.144 (0.025-0.148)
[2025-04-27 11:21] LABS: Immunoglobulin A 176 mg/dL (47-310); Immunoglobulin G 1262 mg/dL (600-1640); Kappa Light Chain, Free 318.4 mg/L (3.3-19.4); Lambda Light Chain, Free 8.0 mg/L (5.7-26.3)
[2025-04-28 03:06] LABS: Albumin 4.0 g/dL (3.8-4.8); Alpha-1-Globulin 0.3 g/dL (0.2-0.3); Alpha-2-Globulin 0.7 g/dL (0.5-0.9); Beta-1-Globulin 0.5 g/dL (0.4-0.6); Beta-2-globulin 0.4 g/dL (0.2-0.5); Gamma Globulin 1.2 g/dL (0.8-1.7)
[2025-04-28 06:47] LABS: Beta 2 Microglobulin 1.21 mg/L (< OR = 2.51); Immunoglobulin M 80 mg/dL (50-300); Kappa/Lambda, Free Ratio 39.80 (0.26-1.65)
[2025-04-28 06:51] LABS: Protein, total, serum 7.0 g/dL (6.1-8.1)
--- NOTE | 2025-05-11 00:58 | CTCFLWUP_ITS ---
Patient: SOPHIA BENTLEY : 1995 Page 5 of 7 FOLLOW UP NOTE DATE OF SERVICE: 04/28/2025 NAME: SOPHIA BENTLEY ACCOUNT: [id number] : 1995 AGE: 30 INTERVAL HISTORY: 30-year-old here to follow-up on the multiple myeloma. Patient completed kyphoplasty .patient is back to his baseline and walking well. Patient was found to have elevated kappa chains on the blood work. There is no monoclonal protein on the blood. Bone scan is nonspecifically positive. 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 06/26/2023: Mr. Bentley was lifting some heavy object when he experienced sudden pain in the back with pain radiating into his both lower extremities. According to Mr. Bentley he was having some dull pain for 6 months prior to that in his lower back. X-rays of the lumbar spine were done 07/31/2023: Due to persistent pain Mr. Bentley had MRI of the lumbar spine without contrast Mr. Bentley saw Dr. Dr. Danielito Moreno of [facility] who requested biopsy of the mass lesion at the L2 vertebra. However according to Mr. Bentley the insurance company wanted a repeat MRI with and without contrast. 10/11/2023:: Mr. Bentley had MRI of the lumbar spine with and without contrast 11/08/2023: Mr. Bentley had CT-guided biopsy of the L2 lesion. 11/28/2023: Bone scan done 12/06/2023: Hemoglobin 15.2, MCV 92, WBC 6.2, ANC 4.0, platelets 235,000, creatinine 0.89, calcium 9.7, total protein 7.2, globulins 2.6, serum protein electrophoresis negative for M spike, quantitative immunoglobulin levels in the normal range, free kappa light chains elevated at 427.7. [place]/lambda ratio is 49.73. Beta-2 microglobulin 1.2 12/19/2023: Bone marrow biopsy and aspiration done 12/19/2023 - 12/25/2023: Patient received 2000 cGy radiation therapy to the L2 vertebral body region. 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 None Medications Last Reconciled by Melba Eldridge MD on 04/28/2025 ALLERGIES: No Known Drug Allergies REVIEW OF SYSTEMS: A complete 14-point review of systems was performed and is negative except as noted in interval history. PHYSICAL EXAMINATION: VITAL SIGNS: Temperature?97.1, B/P?128/82, Oxygen?Saturation?98% Weight?170?lbs (Change?since?04/21/25:?-0.2?lbs) PAIN: 0 - No pain ECOG Performance Status: None GENERAL APPEARANCE: Appears well, in no apparent distress, appropriately interactive. HEENT: Normocephalic, no temporal wasting, normal conjunctiva, no scleral icterus, normal hearing, lips without lesions, neck normal range of motion. CARDIOVASCULAR: Not assessed. PULMONARY: Normal respiratory effort, no respiratory distress or use of accessory muscles, speaking in full sentences, no tachypnea. EXTREMITIES: No pedal edema or cyanosis. SKIN: Normal skin appearance. NEUROLOGIC: Alert and oriented x4. PSHYCHIATRIC: Appropriate affect, mood normal, behavior normal, intact thought and speech. LABORATORY DATA: I have personally reviewed and interpreted each of the patient?s relevant lab tests, abnormal findings are below: Date 02/23/25 04/21/25 ??WHITE?BLOOD?COUNT?(Thou/mm3) 7.7 8.2 ??RED?BLOOD?COUNT?(Miln/mm3) 4.95 4.96 ??HEMOGLOBIN?(gm/dl) 13.9 14.5 ??HEMATOCRIT?(%) 41.3 41.5 ??PLATELET?COUNT?(Thou/mm3) 291 292 ??NEUTROPHILS?%,?AUTO?(%) 62 66 ??LYMPH?%,?AUTO?(%) 27 24 ??NEUTROPHILS,?AUTO?(Thou/mm3) 4.8 5.4 ??GLUCOSE,RANDOM?(mg/dL) 97 92 ??BLOOD?UREA?NITROGEN?(mg/dL) 11 7?L ??CREATININE?(mg/dL) 1.00 0.90 ??SODIUM?(mmol/L) 142 142 ??POTASSIUM?(mmol/L) 3.6 3.8 ??CHLORIDE?(mmol/L) 107 107 ??CrCl?(CandG)?(ml/min) 104.23 132.24 ??AST/SGOT?(Unit/L) 26 31 ??ALT/SGPT?(Unit/L) 43 28 ??ALKALINE?PHOSPHATASE?(Unit/L) 112 103 ??BILIRUBIN,?TOTAL?(mg/dL) 0.6 0.4 ??PROTEIN?TOTAL?(gm/dl) 6.6 6.8 ??ALBUMIN,?SERUM?(gm/dl) 4.3 4.2 ??GLOBULIN?(gm/dl) 2.3 2.6 ??ALBUMIN/GLOBULIN?RATIO 1.9 1.6 ??CALCIUM,?SERUM?(mg/dL) 9.4 9.3 ??CALCIUM?SERUM?(CORRECTED)?(mg/dL) 9.4 9.3 ASSESSMENT/PLAN: 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 Patient is s/p radiation Patient completed kyphoplasty PET CT scan showed only hypermetabolic osteolytic lesion in L2 and no other osteolytic lesions or hypermetabolism Patient's kappa lambda chains are getting progressively worse Bone scan is nonspecific bone marrow biopsy at [facility] is not scheduled Patient referred to [facility] for bone marrow biopsy as well as second opinion ORDERS: Order # Description [id number] Basic Metabolic Panel [id number] Lab Appointment [id number] Infusion 1 Hour [id number] Basic Metabolic Panel [id number] Lab Appointment [id number] Infusion 1 Hour [id number] Basic Metabolic Panel [id number] Lab Appointment [id number] Infusion 1 Hour [id number] Basic Metabolic Panel [id number] Lab Appointment [id number] Infusion 1 Hour [id number] Basic Metabolic Panel [id number] Lab Appointment [id number] Infusion 1 Hour [id number] Basic Metabolic Panel [id number] Lab Appointment [id number] Infusion 1 Hour [id number] Basic Metabolic Panel [id number] Lab Appointment [id number] Infusion 1 Hour [id number] Basic Metabolic Panel [id number] Lab Appointment [id number] Infusion 1 Hour [id number] Basic Metabolic Panel [id number] Lab Appointment RETURN TO CLINIC: I reviewed the diagnosis, prognosis, and recommended treatment/procedure options with the patient (and/or their legal medical service representative), including the potential benefits, risks, side effects and alternative therapies. We also discussed the option of no treatment and the possibility of clinical trial participation, if applicable. All questions were addressed, and they demonstrated understanding. They provided informed consent to proceed with the proposed plan of care. BILLING AND COMPLIANCE: I reviewed external records from providers outside my specialty as summarized above. I spent a total of 50 minutes on this patient?s care on the day of their visit excluding time spent related to any billed procedures. This time includes time spent with the patient as well as time spent documenting in the medical record, reviewing patients records and tests, obtaining history, placing orders, communicating with other healthcare professionals, counseling the patient, family or caregiver, and/or care coordination for the diagnoses above. Electronically Signed by: {Object.Sanct_ID*PnP.NameFL@M}, {Object.Sanct_ID*PnP.Suffix@U} D: {Object.Sanct_Date} T: {Object.Sanct_Time} CC: PCP: Ashley Clancy Referring: Ashley Clancy This document was completed utilizing speech recognition software. Grammatical errors, random word insertions, pronoun errors, and incomplete sentences are an occasional consequence of this system due to software limitations, ambient noise, and hardware issues. Any formal questions or concerns about the content, text or information contained within the body of this dictation should be directly addressed to the provider for clarification.
== END 2025-05-15 23:59 | disposition home or self-care (01) ==
LOC: SCTC 14:26
PROVIDERS: PCP Physician Assistant; Referring Provider Physician Assistant; Visit Provider Internal Medicine Hematology & Oncology
DX: C90.30 Solitary plasmacytoma not having achieved remission (principal); Z92.3 Personal history of irradiation
CPT/HCPCS: 36591; 80053; 82232; 82570; 82784; 83521; 84155; 84156; 84165; 84166; 85025; 86334; 99212; A4216; J1642; G0463